=== PATIENT | male | born 1930 | race Caucasian/White ===

== ENCOUNTER 2018-06-28 02:46 | Inpatient (IN) | payer OTHER, MEDICARE ==
[~2018-06-28] VITALS: Ht 177.8 cm; Wt 76.0 kg
--- NOTE | ~2018-06-28 | HC ---
[facility] [place] [address] CONSULTATION Name: CHELY SNOW Room #: 216-P [facility] IN M.R.#: [id number] Admission: 06/28/18 Attend Phys: Kodak Morton Discharge: Date of : [birth year] Report #: [id number] THIS REPORT FOR: //name// CC: FAM unknown Kodak Morton PRIMARY CARE PHYSICIAN: ____ DIRECTOR OF RADIO SERVICES: Ino Gutierrez MD [facility]. REASON FOR CONSULTATION: CHF. HISTORY OF PRESENT ILLNESS: The patient is an 88-year-old male with a history of permanent pacemaker, atrial arrhythmias and LV dysfunction who presented with increasing lower extremity edema with weeping in his lower extremities as well as erythema. Separately, he has also been more short of breath with activity and having mild orthopnea. He denies chest pain or pressure. He has been compliant with his medications. He is without symptoms of palpitations or heart racing. PAST MEDICAL HISTORY: He has a past medical history of atrial arrhythmias, permanent pacemaker and congestive heart failure, his initial diagnosis in [id number] his EF was in the 30% range. He has persistent atrial fibrillation, hypertension, hyperlipidemia, diabetes, glaucoma and debilitation. HOME MEDICATIONS: Include Amaryl 2 mg daily, metformin 1000 mg p.o. b.i.d., Zocor 20 mg at bedtime, ramipril 5 mg p.o. b.i.d. He is on dabigatran for anticoagulation and aspirin 81 mg daily. REVIEW OF SYSTEMS: GASTROINTESTINAL: No nausea or vomiting. MUSCULOSKELETAL: Positive lower extremity edema in bilateral lower extremities. NEUROLOGIC: Denies headaches, blurred vision or falls. GENITOURINARY: No dysuria or hematuria. GASTROINTESTINAL: No bleeding. CARDIOVASCULAR: Positive dyspnea with exertion, positive orthopnea and positive PND. No chest pain. PHYSICAL EXAMINATION: VITAL SIGNS: Blood pressure is 117/59, pulse 66 paced, temperature 37.4, respirations 20 and O2 sats 97%. His weight is 70 kilos. GENERAL: This is a thin, cachectic, elderly male. He is a poor historian. He is in no apparent distress. HEENT: Unremarkable. NECK: Supple. No jugular venous distention. [facility] [address] [place] [address] CONSULTATION Name: CHELY SNOW Room #: 216-P [facility] IN .R.#: [id number] Admission: 06/28/18 Attend Phys: Kodak Morton Discharge: Date of : [birth year] Report #: [id number] CARDIOVASCULAR: Irregular. There is faint apical murmur. LUNGS: Diminished breath sounds bilaterally. ABDOMEN: Nontender. EXTREMITIES: There is 2+ erythematous edema in the lower extremities with some excoriations and scabbing of his right lower extremity. NEUROLOGIC: There are no focal deficits. 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 He is quite hard of hearing. LABORATORY DATA: Hemoglobin is 10.8, white blood cell count is 9.1 and platelet count is pending. Sodium is 141, potassium is 3.7, chloride is 107, CO2 is 25, BUN is 38 and creatinine is 1.7. Troponin I is 0.30. Electrocardiogram shows V-paced complexes. IMPRESSION: 1. Pozca-nr-pubqudz systolic congestive heart failure. His ejection fraction is in the 40% range. I was able to step into his room for my examination when his echocardiogram was being performed. This is not a whole lot different than his previous evaluations outpatient apparently. I would continue with Lasix IV. 2. Possible cellulitis. He may require IV antibiotics. I will defer treatment of this to our hospital colleagues. 3. Diabetes mellitus. He had been on metformin. We will need to monitor his renal function. 4. Mild chronic renal insufficiency. We will monitor renal function during his diuresis. 5. Atrial arrhythmias. He remains a high stroke risk without a fall history. I will probably continue with his oral novel agent upon discharge depending on what his functional status is. 6. Status post permanent pacemaker. By: [id number] Renny Blanton MD, FACC /nt
[~2018-06-28 02:46] MED LIST: ADULT LOW DOSE81 MG PO; ALTACE5 MG PO; AMARYL2 MG PO; GLUCOPHAGE500 MG PO; NIASPAN 500 MG500 M1 PO; OMEPRAZOLE20 M2 PO; PRADAXA150 MG PO; VICODIN 5-5001 EACH PO; VITAMIN D1000 UNI1 PO; ZOCOR 20 MG TAB20 M1 PO
[2018-06-28 04:40] VITALS: BP 122/58
--- NOTE | 2018-06-28 07:39 | NUR ---
PT. ARRIVED AROUND 5AM; AOX4; ST. HAS NOT HAD MUCH SLEEP; C/O PAIN OVER R. CALF AREA; ADMITION ASSESSMENT COMPLETED; ORDERS ACKNOLEDGE; ASSESSMENT CHARGED; FOLLOWING POC; PASSED ON REPORT.
[2018-06-28 07:53] VITALS: BP 117/59
[2018-06-28 08:20] LABS: HEMATOCRIT 32.4 % (42.0-52.0); HEMOGLOBIN 10.8 gm/dL (14.0-18.0); MCHC 33.4 g/dL (28.0-37.0); MCV 101.7 fL (80.0-100.0); RBC 3.19 mil/uL (4.50-6.00); RDW 14.7 % (10.5-14.5); WBC 9.1 thou/uL (4.0-11.0)
[2018-06-28 08:37] LABS: CALCIUM 9.5 mg/dL (8.5-10.1); CHOLESTEROL 114 mg/dL (<200); CREATININE 1.7 mg/dL (0.7-1.3); HDL CHOLESTEROL 61 mg/dL (>40); LDL CHOLESTEROL 44 mg/dL (<100); POTASSIUM 3.7 mmol/L (3.5-5.1); TC:HDL 1.9 Ratio (Not establshd); TRIGLYCERIDE 48 mg/dL (<150); TROPONIN-I 0.3 ng/mL (<0.06); VLDL 10 mg/dL (<40)
--- NOTE | 2018-06-28 08:40 | EKG ---
[address] [address] [place] [address] ELECTROCARDIOGRAM REPORT Name: CHELY SNOW Room #: 216-P ADM IN M.R.#: [id number] Admission: 06/28/18 Attend Phys: Kodak Morton Discharge: Date of : [birth year] Report #: [id number] THIS REPORT FOR: //name// [facility] Test Date: 2018-06-28 Test Time: 07:56:13 Pat Name: CHELY SNOW Department: Room: 216 P Gender: M [employer] Planner: ALENA : 1930 Requested By: Palmira Doran Order Number: [id number] MD: Corby Diaz Measurements Intervals [place] Rate: 83 P: [place]: QRS: -88 QRSD: 198 T: 93 QT: 449 QTc: 528 Interpretive Statements Afib/flut and V-paced complexes No further analysis attempted due to paced rhythm Compared to ECG 04/12/2010 05:16:44 Occasional intrinsic depolarizations no longer present Electronically Signed On 06-28-2018 8:40:12 SOUND ASSISTANT by Corby Diaz [email or web address] <ELECTRONICALLY SIGNED> By: Corby Diaz MD, [facility] 06/28/18 0840 [id number] Corby Diaz MD, [facility] /EPI
[2018-06-28 11:11] LABS: FOLIC ACID 12.1 ng/mL (8.6-58.9); TSH 0.687 uIU/mL (0.358-3.740)
[2018-06-28 11:42] VITALS: BP 108/53
--- NOTE | 2018-06-28 12:28 | NUR ---
met with patient who admits with CHF/weakness. 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 He reports he uses a cane in community. ALL Needs on one level in home with steps to enter. He is independent with adls. He reports with scoliosis. He cont to drive. Therapy evals in process patient likely with need for post acute care. He has dtr in [place] and son in [place] who both appear supportive.
--- NOTE | 2018-06-28 13:42 | NUR ---
WOUND CONSULT: PT. WAS SEEN TODAY BY DR. LOPEZ AND MYSELF. PT. HAS BILATERAL CELLULITIS WITH ULCERATIONS TO HIS RIGHT LOWER EXTREMITY. UNABLE TO PALPATE PEDAL PULSES IN EITHER FOOT, WEAK POPITEL PULSES WERE PALPATED. RECOMMENDATIONS: WOUND CARE TO BILATERAL LOWER EXTREMTIYS: GENTLY CLEANSE WITH WOUND CLEANSER OR NORMAL SALINE, APPLY SILVADENE/MORPHINE COMPOUND TO WOUND BED, COVER WITH XEROFORM, ABD, KERLIX, SECURE WITH TAPE, COMPLETE CARES BID. PT. AND STAFF NURSE WERE INSTRUCTED ON PLAN OF CARE.
[2018-06-28] MEDS ORDERED: LASIX 20 MG TAB20 MG PO (13:43)
[2018-06-28] MEDS ORDERED: KLOR-CON 1010 MEQ PO (13:45)
[2018-06-28] MEDS ORDERED: XALATAN2.5 ML OPHTHALMIC (13:45)
[2018-06-28] MEDS ORDERED: CARVEDILOL3.125 MG PO (13:46)
[2018-06-28] MEDS ORDERED: TOPAMAX 100 MG100 MG PO (13:46)
[2018-06-28] MEDS ORDERED: NEURONTIN 300300 M1 PO (13:46)
[2018-06-28] MEDS ORDERED: SYSTANE 0.3-0.1 EACH OPHTHALMIC (13:47)
[2018-06-28] MEDS ORDERED: TRIAMCINOLONE A80 G2 TOP (13:48)
[2018-06-28] MEDS ORDERED: ELEMENTAL CALC600 MG PO (13:49)
--- NOTE | 2018-06-28 14:11 | 2DMMODE ---
[facility] [employer] [place] [address] 2 D/M-MODE ECHOCARDIOGRAM Name: CHELY SNOW Room #: 216-P ADM IN M.R.#: [id number] Admission: 06/28/18 Attend Phys: Kodak Nassar Discharge: Date of : [birth year] Date of Service: 06/28/18 1411 Report #: [id number] THIS REPORT FOR: //name// APPROVED REPORT Study performed: 06/28/2018 08:40:18 EXAM: Comprehensive 2D, Doppler, and color-flow Echocardiogram Patient Location: Bedside Room #: 216 Status: routine BSA: 1.87 HR: 63 bpm BP: 117/59 mmHg Rhythm: Atrial Fibrillation Other Information Study Quality: Adequate Indications Pulmonary Edema, CHF. Hx: PPM, Afib, CHF 2D Dimensions RVDd: 42.98 mm IVSd: 9.57 (7-11mm) LVOT Diam: 21.12 (18-24mm) LVDd: 55.02 mm PWd: 9.14 (7-11mm) Ascending Ao: 31.36 (22-36mm) LVDs: 45.57 (25-40mm) Aortic Root: 34.55 mm Volumes Left Atrial Volume (Systole) Single Plane 4CH: 87.64 mL Single Plane 2CH: 83.51 mL LA ESV Index: 51.00 mL/m2 Aortic Valve AoV Peak Obinna.: 1.16 m/s AO Peak Gr.: 5.39 mmHg LVOT Max P.08 mmHg LVOT Max V: 0.88 m/s SAMI Vmax: 2.65 cm2 Mitral Valve MV Decel. Time: 241.43 ms MV E Max Obinna.: 0.84 m/s Pulmonary Valve [facility] [address] [place] [address] 2 D/M-MODE ECHOCARDIOGRAM Name: CHELY SNOW Room #: 216-P ADM IN [facility].#: [id number] Admission: 06/28/18 Attend Phys: Kodak Nassar Discharge: Date of : [birth year] Date of Service: 06/28/18 1411 Report #: [id number] PV Peak Obinna.: 0.81 m/s PV Peak Gr.: 2.61 mmHg Tricuspid Valve TR Peak Obinna.: 2.68 m/s RAP Estimate: 10.00 mmHg TR Peak Gr.: 28.80 mmHg Left Ventricle The left ventricle is normal size. There is global hypokinesis of the left ventricle. There is normal left ventricular wall thickness. Left ventricular systolic function is moderately decreased. LVEF is 40%. This study is not technically sufficient to allow evaluation of the LV diastolic function due to atrial fibrillation. Right Ventricle Right ventricle is mildly dilated. Right ventricle is mildly hypokinetic. Pacemaker lead is present in the right ventricle. Atria Left atrium is severely dilated. PFO noted with color doppler. Right atrium is moderately dilated. Aortic Valve The aortic valve is normal in structure. Trace aortic regurgitation. There is no aortic valvular stenosis. Mitral Valve The mitral valve is normal in structure. Mild mitral annular calcification. Mild mitral regurgitation. No evidence of mitral valve stenosis. Tricuspid Valve The tricuspid valve is normal in structure. Moderate tricuspid regurgitation. Estimated PAP is 40mmHg. Pulmonic Valve The pulmonary valve is normal in structure. Mild pulmonic regurgitation. Great Vessels The aortic root is normal in size. The ascending aorta is normal in size. IVC is dilated [facility] [address] [place] [address] 2 D/M-MODE ECHOCARDIOGRAM Name: EDYCHELY Room #: 216-P [facility] IN .R.#: [id number] Admission: 06/28/18 Attend Phys: Kodak Nassar Discharge: Date of : [birth year] Date of Service: 06/28/18 1411 Report #: [id number] and collapses <50% with inspiration. Pericardium There is no pericardial effusion. <Conclusion> LVEF is 40%. There is global hypokinesis of the left ventricle. Right ventricle is mildly hypokinetic. Right ventricle is mildly dilated. Left atrium is severely dilated. There is no aortic valvular stenosis. Trace aortic regurgitation. Mild mitral regurgitation. Moderate tricuspid regurgitation. Estimated PAP is 40mmHg. <ELECTRONICALLY SIGNED> By: Renny Blanton MD, [facility] 06/28/181410 10 10 eRnny Blanton MD, FACC /INF
--- NOTE | 2018-06-28 16:57 | NUR ---
PT IS ALERT AND ORIENTED X4. PT HAD PHYSICAL THERAPY AND OCCUPATIONAL THERAPY TODAY. PT ON ROOM AIR LUNGS ARE DIMINISHED. V-PACED ON THE UPPER LEATHER CUTTER. WOUND CARE SAW PT TODAY AND CREAM TO LOWER EXTREMITY BILATERAL. AREAS OF REDNESS AND AND ESCHAR. TRYING TREATMENT AT HOME BUT NOTHING WORKING. CONSULTS PLACED FOR WOUNDS. VOIDS PER URINAL. EATING A LOW SODIUM DIET AND TOLEATING WELL. PT HAS GENERALIZED WEAKNESS ASSIT X2 WITH BED OR CHAIR ALARM ON DUE TO FORGETFULL AT TIMES. WILL CONTINUE TO MONITOR AND ASSESS PER NURSING
[2018-06-28 20:19] VITALS: BP 110/65
[2018-06-28 22:10] LABS: GLYCOHEMOGLOBIN (HGB A1C) 6.1 % (4.8-5.6)
[2018-06-29 03:25] LABS: CALCIUM 8.8 mg/dL (8.5-10.1); CREATININE 1.6 mg/dL (0.7-1.3); POTASSIUM 3.7 mmol/L (3.5-5.1)
[2018-06-29 04:12] LABS: ABSOLUTE NEUTROPHILS 6.4 thou/uL (1.4-8.2); BASOPHILS 0.3 % (0.0-2.0); EOSINOPHILS 4.8 % (0.0-3.0); HEMATOCRIT 31.4 % (42.0-52.0); HEMOGLOBIN 10.6 gm/dL (14.0-18.0); LYMPHOCYTES 8.5 % (24.0-44.0); MCH 34.3 pg (26.0-34.0); MCHC 33.9 g/dL (28.0-37.0); MONOCYTES 7.7 % (1.0-8.0); PLATELET COUNT 98 thou/uL (150-400); POLYS 78.7 % (36.0-66.0); RBC 3.11 mil/uL (4.50-6.00); RDW 14.7 % (10.5-14.5); WBC 8.2 thou/uL (4.0-11.0)
[2018-06-29 04:43] VITALS: BP 125/61
--- NOTE | 2018-06-29 05:43 | NUR ---
PT. AOX4 AT SHIFT CHANGE; RELATIVES PRESENT EARLY ON THE NIGHT; PT. GOT UPSET ABOUT HS MEDICATION BECAUSE MEDICATIONS ARE NOT THE SAMEONES TAKEN AT HOME; REFUSED LOVENOX; ST. "I TAKE PRADAXA AT HOME; " I HAVE NOT TAKEN THE MORNING DOSE AND NOW I DO NOT HAVE THE NIGHT DOSE"; C/O ABOUT INSULIN; "ST I DO NOT TAKE INSULIN AT HOME"; UPSET BECAUSE HIS REGULAR CARDIOLOGY HAS NOT VISITED DURING THE DAY HE REQUESTED; ST. 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 PEREZ); EXPLAINED ABOUT THE REASONS BEHIND OF CHANGING BLOOD THINNERS WHILE IN THE HOSPITAL WELL METFORMIN BY INSULIN; AND DAUGHTER ST. UNDERSTANDING; PT. REFUSED LOVENOX; EXPLAINED ABOUT DR. PEREZ PRIVILEGES OVER THE HOSPITAL; ST. UNDERSTANDING; TOOK OTHER HS MEDICATIONS; COOPERATIVE AND CALM FOR THE REST OF THE NIGHT; ABLE TO REST DURING THE NIGHT; BLADDER SCANNED IN THE MORNING; ABLE TO VOID; ASSESSMENT CHARGED; FOLLOWING POC; WILL PASS ON REPORT.
[2018-06-29 08:20] VITALS: BP 130/80
[2018-06-29 12:00] VITALS: BP 127/54
--- NOTE | 2018-06-29 12:24 | NUR ---
Case discussed with the care team. Therapy recommending rehab at dc. 5N eval per the attending. 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 Continue IV atb, wound care and therapy. Awaiting rehab medicine recommendations.
[2018-06-29 16:00] VITALS: BP 120/49
--- NOTE | 2018-06-29 18:45 | NUR ---
ASSUMED CARE OF PATIENT AT 0700. PT/VITALS STABLE. COMPLAINS OF INTERMITTENT LOWER EXTREMITY PAIN. PATIENT IS A STAND BY ASSIST WITH A GAIT BELT AND GREW MORE STEADY WITH EACH TIME ON HIS FEET TO THE BATHROOM. HE WORKED WITH PT/OT TODAY. PROGRESSING WELL WITH POC. DRESSING CHANGE ON BILATERAL LE PERFORMED AND BARE LEGS SHOWN TO THE PATIENT'S DAUGHTER. PATIENT'S DAUGHTER REQUESTED GLUCERNA BE ADDED TO EACH MEAL THE PATIENT HAS NOT HAD MUCH OF AN APPETITE. PATIENT'S DAUGHTER AND AT THE BEDSIDE TODAY. PLAN IS TO CONTINUE TO TREAT PATIENT WITH ABX. CONTINUE TO MONITOR AND FOLLOW WITH POC.
[2018-06-29 19:28] VITALS: BP 108/56
--- NOTE | 2018-06-30 04:41 | NUR ---
Assumed pt care at 1900 with no sign of distress noted in pt. Pt is alert and oriented with no sign of distress noted in pt. Family at bedside. Pt is staboe and he is laying in bed. Scheduled medications administered to pt. Pt's blood sugar ids checked. Wound dressing change done. Assessment documented. No further needs at this time. Pt is stable. Denies any further needs at this time.
[2018-06-30 04:52] VITALS: BP 105/53
[2018-06-30 05:19] LABS: CALCIUM 8.6 mg/dL (8.5-10.1); CREATININE 1.7 mg/dL (0.7-1.3); MAGNESIUM 1.8 mg/dL (1.8-2.4); POTASSIUM 3.5 mmol/L (3.5-5.1)
[2018-06-30 08:12] VITALS: BP 105/57
[2018-06-30] MEDS ORDERED: ASPIR 8181 MG PO (08:59)
[2018-06-30] MEDS ORDERED: VAN500AD IVPB (09:03)
[2018-06-30 09:14] VITALS: BP 105/57
--- NOTE | 2018-06-30 10:02 | NUR ---
Pt and family agreeable to 5N acute rehab. All parties anticipating dc to 5N today.
--- NOTE | 2018-06-30 11:08 | NUR ---
ASSESSMENT DOCUMENTED. PT ALERT AND ORIENTED WITH FORGETFULNESS. VSS. WOUND CARE COMPLETED. SEEN BY DR. POWER. ORDERS GIVEN TO DISCHARGE PT TO REHAB. PATIENT AND FAMILY NOTIFIED. REPORT CALLED IN TO [facility].
--- NOTE | 2018-07-03 08:46 | HC ---
[facility] [place] [address] CONSULTATION Name: EDYCHELY Niko Room #: 216-P [facility] IN .R.#: [id number] Admission: 06/28/18 Attend Phys: Kodak Morton Discharge: 06/30/18 Date of : [birth year] Report #: [id number] THIS REPORT FOR: //name// CC: FAM unknown Kodak Morton DATE OF SERVICE: 06/28/2018 PERSONAL PHYSICIAN: Non-staff. CHIEF COMPLAINT: Lower extremity cellulitis with open ulcerations. HISTORY OF PRESENT ILLNESS: This is an 88-year-old white male who lives at home with his , but for the past several days has been having increasing lower extremity edema and was admitted for fluid overload as well as bilateral lower extremity cellulitis. The patient was noted to have open ulcerations on both lower extremities, right much greater than left. The patient also has a complaint of weakness and fatigue over the past several weeks. The patient states his lower extremities have been more swollen recently, which developed into fluid filled blisters, which then developed into open ulcerations. The patient states that the redness and warmth started approximately 2-3 days ago, which prompted him to call his primary care physician who admitted him to the hospital. PAST MEDICAL HISTORY: Significant for diabetes, congestive heart failure, atrial fibrillation, hypertension and hyperlipidemia. CURRENT MEDICATIONS: Multiple, I reviewed the patient's medication list. DRUG ALLERGIES: SULFA. SOCIAL HISTORY: The patient denies any history of smoking or alcohol use. FAMILY HISTORY: Not pertinent to current condition. REVIEW OF SYSTEMS: CONSTITUTIONAL: The patient denies fevers or chills. NEUROLOGIC: The patient with overall generalized weakness and fatigue for the past several days, but no isolated weakness in arms or legs. EYES: No complaints. ENT: No complaints. CARDIAC: The patient complains of lower extremity edema with palpitations consistent with atrial fibrillation, but no chest pain. RESPIRATORY: The patient denies actual shortness of breath, cough or wheezes. GASTROINTESTINAL: The patient denies nausea, vomiting or abdominal pain. GENITOURINARY: The patient denies urgency or frequency. [facility] [address] [place] [address] CONSULTATION Name: CHELY SNOW Room #: 216-P [facility] IN M.R.#: [id number] Admission: 06/28/18 Attend Phys: Kodak Reese Morton Discharge: 06/30/18 Date of : [birth year] Report #: [id number] MUSCULOSKELETAL: No complaints. SKIN: There are open wounds noted on the bilateral lower extremities, right much greater than left with increased erythema and warmth. PHYSICAL EXAMINATION: VITAL SIGNS: Temperature 39, pulse 65, respirations 20 and BP 125/61. GENERAL: This is an alert and oriented x 2, person and place, but not time, elderly, chronically ill-appearing white male who is in no obvious distress. HEENT: Normocephalic and atraumatic. Mucous membranes are dry. Pupils are round. Sclerae are white. NECK: Supple. There is no JVD. LUNGS: Slightly diminished breath sounds heard throughout. HEART: Irregularly irregular. ABDOMEN: Soft, otherwise nontender. EXTREMITIES: The patient has 1 to 2+ edema in the bilateral lower extremities. Distal pulses are faint. There is increased warmth and erythema of bilateral lower extremities. On the left lower extremity, there is more consistent dry skin, hyperkeratotic skin. On the right lower extremity, there are multiple superficial ulcerations limited to breakdown of the skin. Bilateral heels are intact, but slightly boggy. NEUROLOGIC: Cranial nerves 2-12 are grossly intact. Motor and sensory grossly intact. LABORATORY VALUES: White count 9.1 and hemoglobin 10.8. BUN 41 and creatinine 1.6. WOUND CARE COURSE: At this point in time, given the weak pulses distally, I will order arterial Dopplers to evaluate for underlying arterial disease. We will hold off on aggressive compression pending the arterial Dopplers. We will start the patient on morphine and Silvadene cream to bilateral lower extremities, cover this with Xeroform, ABD, Kerlix and secure with tape while this is placed twice daily I have talked to the patient about maximizing his protein supplementation. We will check an albumin on this patient as well. We will keep his legs elevated as much as possible. We will continue all other current medications. IMPRESSION: 1. Bilateral lower extremity cellulitis, right greater than left. 2. Chronic ulcerations, bilateral lower extremities, limited to breakdown of skin. 3. Diabetes mellitus. 4. Congestive heart failure. 5. Atrial fibrillation. 6. Generalized debility. [address] [address] CONSULTATION Name: CHELY SNOW Room #: 216-P [facility] IN M.R.#: [id number] Admission: 06/28/18 Attend Phys: Kodak Morton Discharge: 06/30/18 Date of : [birth year]19/[birth year] Report #: [id number] PLAN: Described in length as above. We will utilize physical and occupational therapy for strengthening and we will continue to follow the patient. <ELECTRONICALLY SIGNED> By: Robe Parry MD 07/03/18 [phone] 1235 Robe Parry MD /nt
== END 2018-06-30 11:31 | DRG 602 ==
LOC: 2N 02:46 → ENTRNSPT 06-30 11:25 → 2N 06-30 11:31
PROVIDERS: Internal Medicine Cardiovascular Disease; Nurse Practitioner; Nurse Practitioner Family; ADMIT Hospitalist
DX: L03.116 Cellulitis of left lower limb (principal); I50.23 Acute on chronic systolic (congestive) heart failure; I48.1 Persistent atrial fibrillation; N18.4 Chronic kidney disease, stage 4 (severe); L97.821 Non-pressure chronic ulcer of other part of left lower leg limited to breakdown of skin; L97.811 Non-pressure chronic ulcer of other part of right lower leg limited to breakdown of skin; I13.0 Hypertensive heart and chronic kidney disease with heart failure and stage 1 through stage 4 chronic kidney disease, or unspecified chronic kidney disease; L03.115 Cellulitis of right lower limb; E78.5 Hyperlipidemia, unspecified; H40.9 Unspecified glaucoma; I49.8 Other specified cardiac arrhythmias; D69.6 Thrombocytopenia, unspecified; E11.22 Type 2 diabetes mellitus with diabetic chronic kidney disease; G25.81 Restless legs syndrome; G25.0 Essential tremor; K21.9 Gastro-esophageal reflux disease without esophagitis; M62.84 Sarcopenia; Z95.0 Presence of cardiac pacemaker; Z88.2 Allergy status to sulfonamides; Z79.899 Other long term (current) drug therapy
CPT/HCPCS: 10081

== ENCOUNTER 2018-06-30 10:34 | Inpatient (IN) | payer OTHER, MEDICARE ==
[~2018-06-30] VITALS: Ht 185.4 cm; Wt 73.5 kg
[~2018-06-30 10:34] MED LIST changes: +ASPIR 8181 MG PO; +CARVEDILOL3.125 MG PO; +ELEMENTAL CALC600 MG PO; +KLOR-CON 1010 MEQ PO; +LASIX 20 MG TAB20 MG PO; +NEURONTIN 300300 M1 PO; +SYSTANE 0.3-0.1 EACH OPHTHALMIC; +TOPAMAX 100 MG100 MG PO; +TRIAMCINOLONE A80 G2 TOP; +VAN500AD IVPB; +XALATAN2.5 ML OPHTHALMIC
--- NOTE | 2018-06-30 11:53 | NUR ---
pt new to [facility] today, bedside nurse in room getting pt tucked in to room. he up in recliner with his and daughter at bedside. pt preferrs going by lester johnson to ronna, team meeting, dcp, and transition of care. pt is a & o x 3, pleasant with some forgetfulness. [facility] " sent hearing aids back to have batteries changed."/alex. pt reported " live with in house, [address] in [place]. 64 years we have been , we help each other but she takes care of things. still drive, manage own medication. primary dr is at [facility] dr sánchez villegas. have walking stick us sometimes. " alex. pt passed on information rt medciation and bs. cm passed on to bedside nurse to cont following up with. will cont following as needed for dc needs.
--- NOTE | 2018-06-30 16:09 | NUR ---
PT ARRIVED IN THE UNIT AT 1130. VITALS STABLE. PT DENIES PAIN. C/O SKIN DRYNESS, LOTION APPLIED TO SHOULDERS AND BACK. PT ALERT AND ORIENTED*4, CONFUSED AT TIMES, HARD OF HEARING. PT HAS UMBERTO LOWER EXTREMITIES CELLULITIS AND WOUNDS, DRESSING CHANGED. PULSES ARE 2+/1+. LS CRACKLES, NO COUGH, SATS >95% ON RA. PT LYING IN BED AFTER THERAPY. SPOUSE AND DAUGHTER AT BEDSIDE. Q1H VISUAL CHECKS. CALL LIGHT WITHIN REACH. FALL PRECAUTIONS IN PLACE
[2018-06-30 20:57] VITALS: BP 110/43
--- NOTE | 2018-07-01 05:27 | NUR ---
UP IN CHAIR MOST OF EVENING, WALKED TO BATHROOM FOR VOID AND BOWEL MOVEMENT. LEGS DRESSED WITH SILADENE/MS, XEROFORM, ABD AND KERLIX. FAMILY STAYING OVERNIGHT AND SLEEPING WELL. STATES NO LONGER USING TRIAMCINOLONE TO LEGS AND WE ARE USING SILVADENE IN PLACE OF IT. EXPLAINED THAT VANCOMYCIN IV WILL BE GIVEN EVERY 12 HOURS
[2018-07-01 05:45] LABS: HEMOGLOBIN 9.3 gm/dL (14.0-18.0); MCH 33.1 pg (26.0-34.0); MCHC 33.1 g/dL (28.0-37.0); MCV 99.9 fL (80.0-100.0); RBC 2.81 mil/uL (4.50-6.00); RDW 14.2 % (10.5-14.5); WBC 5.1 thou/uL (4.0-11.0)
[2018-07-01 05:59] LABS: CALCIUM 8.8 mg/dL (8.5-10.1); CREATININE 1.5 mg/dL (0.7-1.3); POTASSIUM 3.7 mmol/L (3.5-5.1)
[2018-07-01 08:46] VITALS: BP 114/48
--- NOTE | 2018-07-01 17:08 | NUR ---
ASSUMED CARES AT 0700. PT AWAKE, ALERT AND ORIENTED *4. HARD OF HEARING. TIRED AND SLEEPY AFTER THERAPY THIS AFTERNOON, SLEPT ON HIS RECLINER WITH FEET ELEVATED. WOUNDS IN BLE CLEANED AND DRESSING CHANGED, NON-PITTING EDEMA NOTED IN BLE. DENIES PAIN. ALL VITALS REMAINED STABLE. THIS NURSE WENT THROUGH EACH MEDICATION WITH PT, DAUGHTER AND SPOUSE BEFORE ADMINISTERING BUT PT BELIEVES THAT THOSE MEDICATIONS WERE WRONG. HOME MEDICATIONS WERE COMPARED TO THE MEDS IN THE EMAR AND EVERYTHING WAS ZOIE. DAUGHTER AND SPOUSE AGREED WITH NURSING THAT ALL THE MEDICATIONS ADMINISTERED WERE CORRECT. PT UP WITH 1 PERSON MIN ASSIST, AMBULATED THE HALLWAY WITH THERAPY AND TOLERATED WELL. Q1H VISUAL CHECKS. CALL LIGHT WITHIN REACH. FALL PRECAUTIONS IN PLACE.
[2018-07-01 20:15] VITALS: BP 116/51
--- NOTE | 2018-07-02 04:15 | NUR ---
assumed care at approx 1900 evening 07/01. pt sitting up in recliner at change of shift visiting with several family members in his room. family left approx 2200 and pt dozing off in chair. pt assisted up to bathroom and into bed. pt took hs meds with water tolerating well. pt appears to be sleeping soundly with hourly rounding checks. spouse stays the night in room sleeping on cot. bed alarm on and call light in reach. will continue to monitor.
[2018-07-02 09:38] VITALS: BP 96/50
--- NOTE | 2018-07-02 16:37 | NUR ---
ASSUMED CARES AT 0700. PT AWAKE, ALERT AND ORIENTED *4. DENIES PAIN. VITALS REMAINED STABLE. WOUNDS IN BLE CLEANED AND DRESSING CHANGED, SILVER SULFADINE APPLIED. PT CONTINUES TO HAVE MILD BLE EDEMA, DRY SKIN IN BLE, TRIAMCINOLONE CREAM APPLIED ORDERED. PT AMBULATED THE HALLWAY WITH NURSING STAFF LONG DISTANCE AND TOLERATED WELL. SPOUSE AT BEDSIDE. Q1H VISUAL CHECKS. CALL LIGHT WITHIN REACH. FALL PRECAUTIONS IN PLACE
[2018-07-02 19:26] VITALS: BP 93/41
[2018-07-02 22:00] VITALS: BP 102/56
--- NOTE | 2018-07-03 02:00 | NUR ---
PT ASSESSMENT COMPLETED AND VSS. MEDS GIVEN ORDERED AND WELL TOLERATED. FALL PRECAUTIONS IN PLACE. PT DENIES PAIN/N/SOA. SUPPORTIVE FAMILY AT BEDSIDE. UP TO THE BATHROOM WITH WALKER/GAIT/ASST. VOIDING WELL. UMBERTO LEG DRESSINGS COMPLETED. SLEEPING WELL. WILL CONTINUE TO MONITOR FREQUENTLY.
[2018-07-03 04:47] VITALS: BP 115/62
[2018-07-03 07:54] VITALS: BP 104/61
[2018-07-03 19:45] VITALS: BP 90/44
--- NOTE | 2018-07-04 05:08 | NUR ---
ASSUMED CARE OF PT AT 1915. AND DAUGHTER AT BEDSIDE DURING EVENING, IN ROOM ALL SHIFT. DRSGS ON RIGHT LEG CHANGED ORDERED. AMBULATES TO BATHROOM WITH ASSIST OF ONE USING STICK AND GAIT BELT. PO MEDS TAKEN WITHOUT DIFFICULTY, ONE AT A TIME WITH WATER. HAS APPEARED TO BE SLEEPING WHEN CHECKED ON HOURLY ROUNDS. FALL PRECAUTIONS IN PLACE.
--- NOTE | 2018-07-04 06:44 | HC ---
[facility] [address] [place] [address] CONSULTATION Name: CHELY SNOW Room #: 514-P [facility] IN M.R.#: [id number] Admission: 06/30/18 Attend Phys: Ino Dinh MD Discharge: Date of : 04/19/30 Report #: [id number] THIS REPORT FOR: //name// CC: Ino Dinh [facility] unknown DATE OF SERVICE: 07/01/2018 ATTENDING PHYSICIAN: Ino Dinh MD HEAD SCORER: Jagdeep Schaeffer, PhD CLINICAL PRESENTATION: The patient is an 88-year-old male admitted to the [facility] Rehabilitation Unit for comprehensive inpatient rehabilitation program to improve functional mobility and activities of daily living and self-care and mental status secondary to deficits from an acute exacerbation of congestive heart failure with an ejection fraction of 40%. His diagnoses on admission included bilateral lower extremity cellulitis with wounds, medical complexity with generalized debility, gait instability with recurrent falls, atrial fibrillation on chronic anticoagulation, type 2 diabetes, history of permanent pacemaker placement, premorbid essential tremor and peripheral neuropathy. A complete description of his medical condition and history along with medications can be found in his medical records. Neuropsychological consultation was requested to provide assistance in the assessment of cognitive and emotional status and to provide recommendations and services. Prior to this most recent admission, he was living with his in their home. He has 2 children. A son is a police aide whose home is next to them. Patients is reported to provide assistance with most of his instrumental activities of daily living. However, the patient does continue to drive. He has had 2 prior falls. He reports having obtained a master's degree prior to halfway. TECHNIQUES UTILIZED: Clinical interview, review of medical records, staff consultation and behavioral observation, mini-mental status exam 2 standard version, NAB digits forward, digits backward, and category fluency assessment. The patient has a severe tremor and so tests requiring requiring upper extremity dexterity were not administered. EXAMINATION FINDINGS: The patient was alert and cooperative with the assessment. He accurately described events surrounding his admission. There is no evidence of aphasia. His thoughts are logical and goal oriented. There is no evidence of a thought disorder. He does not report auditory or visual hallucinations, depression or suicidal ideation. He reports his symptoms to [facility] [address] [place] [address] CONSULTATION Name: CHELY SNOW Room #: 514-P [facility] IN .R.#: [id number] Admission: 06/30/18 Attend Phys: Ino Dinh MD Discharge: Date of : 04/19/30 Report #: [id number] include difficulty with sleep, memory, appetite and anxiety. His primary concern is his ability to return home. Encouragement to maintain attention and alertness throughout the assessment was necessary. His performance on the MMSE 2 brief version is within normal limits with a raw score of 15 of 16. He was 3 of 3 for initial registration, 5 of 5 for orientation to time, 4 of [address] and 3 of 3 for immediate recall of 3 items after a brief time delay and distraction. Mild impairment was noted on the extended standard version of the MMSE 2 with a raw score of 24, which is a T score of 36 and percentile rank of 8. The patient was 2 of 5 for serial 7s, 2 of 2 for naming, 1 of 1 for repetition, 3 of 3 for auditory comprehension. He could read and follow single command. Because of the severe tremor, he was not able to copy a design or write a sentence. Digits forward was at the 1st percentile with a T score of 27. Digits backward was at the 5th percentile with a T score of 34. Impairment with the digits forward, digits backward suggests deficits in attention and sustained concentration. Deficits in attention and concentration can affect overall executive functioning. Category fluency was in the low average range at a 21st percentile. The patient is alert and oriented; however, deficits in attention and sustained concentration suggest executive dysfunction. DIAGNOSTIC IMPRESSION: Major neurocognitive disorder (dementia), without behavior disorder, mild severity. Unspecified Anxiety Disorder RECOMMENDATIONS: The patient should discontinue driving. Followup with neuropsych assessment can be of benefit to clarify the severity of cognitive deficits. At this time, his level of arousal, attention and sustained concentration is very poor and even when alert and oriented, the variability in attention and concentration places him at a great safety risk for driving. Continued assistance with instrumental activities of daily living as indicated. Thank you very much for allowing me to provide the consultation on this patient. <ELECTRONICALLY SIGNED> By: Jagdeep Schaeffer, PhD 07/04/18 [id number] Jagdeep Schaeffer, PhD /nt
[2018-07-04 07:30] VITALS: BP 103/54
--- NOTE | 2018-07-04 08:08 | NUR ---
ASSUMED CARE AT 0700. PATIENT IS ALERT AND ORIENTED X4. PATIENT RAMIREZ'S. FINANCIAL BROKERS ARE EQUAL. LUNGS ARE CLEAR. PATIENT HAS PACEMAKER. ABD IS SOFT WITH BSX4. UP WITH ASSIST OF 1 STAFF, WALKING STICK AND GAIT BELT. PATIENT HAS CELLULITIS WOUNDS TO L.E. PATIENT IS ON 1500 CC F.R. PATIENT HAS TREMORS AND SHUFFLING GAIT. PATIENT HAS LEFT S.L. IN HIS LEFT A.C. SITE IS WITHOUT REDNESS OR SWELLLNG. FALL AND SAFETY PROTOCOLS IN PLACE. DENIES ANY PAIN AT THIS TIME. CONTINUES TO PROGRESS SLOWLY TOWARDS D/C GOALS. PATIENT FAMILY AT BEDSIDE. WILL CONTINUE TO MONITER.
--- NOTE | 2018-07-04 08:28 | NUR ---
WOUND CONSULT: PT. WAS SEEN ON 07/03/[address] PAUL AND MYSELF. PT. IS WELL KNOWN TO THE WOUND CARE TEAM WE WERE FOLLOWING THIS PT. ON THE ACUTE SIDE OF THE HOSPITAL PRIOR TO ADMIT TO REHAB. PT. WOUNDS HAVE GREATLY IMPROVED SINCE I FIRST SAW THIS PT. PT. WAS PRESENT FOR THIS ASSESSMENT AND STATED THAT SHE IS VERY HAPPY WITH THE PROGRESSION HE IS MAKING. RECOMMENDATIONS: WOUND CARE TO RIGHT LOWER EXTREMTIY: GENTLY CLEANSE WITH WOUND CLEANSER OR NORMAL SALINE, APPLY SILVADENE/MORPHINE COMPOUND TO WOUND BED, COVER WITH XEROFORM, ABD, KERLIX, SECURE WITH TAPE, COMPLETE CARES BID. PT. AND STAFF NURSE WERE INSTRUCTED ON PLAN OF CARE.
--- NOTE | 2018-07-04 13:13 | NUR ---
team meeting recommendations : dc 12th, family education on wound care at home, hh ( nursing, pt, ot, st). recommends no driving and check with primary care.
[2018-07-04 17:00] VITALS: BP 107/48
[2018-07-04 19:30] VITALS: BP 128/62
--- NOTE | 2018-07-05 03:36 | NUR ---
ASSUMED CARE OF PT AT 1915. PT ALERT AND ORIENTED X4. ASSESSMENT COMPLETED. UP IN CHAIR THROUGH THE EVENING. RLE DRSGS CHANGED ORDERED. AMBULATES TO BATHROOM WITH ASSIST OF ONE USING GAIT BELT. DENIES PAIN, NAUSEA OR DYPSNEA. AT BEDSIDE THROUGH THE NIGHT. HAS APPEARED TO BE SLEEPING WHEN CHECKED ON HOURLY ROUNDS. FALL PRECAUTIONS IN PLACE.
[2018-07-05 07:52] VITALS: BP 98/51
--- NOTE | 2018-07-05 12:19 | NUR ---
cm visited with pt and rt hh list, referral to be sent out to [facility] per family choice.
--- NOTE | 2018-07-05 13:04 | NUR ---
ASSUMED CARE AT APPROX 0715. PATIENT A/O X4. USES HUMOR APPROPRIATELY. RECALLS INFORMATION WITH EXTRA TIME. AT BEDSIDE. BP LOW, LISINOPRIL HELD PER PARAMETERS. PAITENT UP X1 ASSIST GB AND WALKER OR WALKING STICK, USED WALKER THIS AM. C/O PAIN IN BACK, MEDICATED PRIOR TO THERAPY. PARTICIPATING IN THERAPY. UP IN CHAIR BETWEEN SESSIONS PER PATIENT REQUEST. LEGS ELEVATED WHEN AT REST. DRESSING TO RIGHT LOWER EXTREMITY C/D/I. PER COMMERCIAL CRABBER, PATIENT MAY HAVE DRESSINGS REMOVE, SHOWER, AND HAVE DRESSINGS REPLACED BY RN- THIS WAS PASSED ON TO ROB DOBBINS. WOUND CARE PHYSICIAN NOTIFIED OF D/C DATE, WOUND CARE TEAM WILL DISCUSS DISCHARGE WOUND CARE ORDERS WITH FAMILY WHEN FINALIZED. FALL PRECAUTIONS IN PLACE. WILL CONTINUE TO MONITOR.
--- NOTE | 2018-07-05 15:14 | NUR ---
Patient participated in community reintegration on 07/05/18 with Physical Therapy. Refer to documentation by PT.
[2018-07-05 20:42] VITALS: BP 103/55
--- NOTE | 2018-07-06 02:16 | NUR ---
ASSUMED CARE OF PT AT 1915. PT ALERT AND ORIENTED X4, CALM AND COOPERATIVE. UP IN CHAIR THROUGH THE EVENING HOURS. DRSGS ON RLE CHANGED ORDERED. C/O SOME BACK PAIN, DECLINES PAIN MEDICATION. AMBULATES WITH ASSIST OF ONE USING GAIT BELT. CHECKED ON HOURLY ROUNDS. BED ALARM ON.
[2018-07-06 04:25] LABS: ABSOLUTE NEUTROPHILS 3.5 thou/uL (1.4-8.2); BASOPHILS 0.5 % (0.0-2.0); EOSINOPHILS 6.9 % (0.0-3.0); HEMATOCRIT 26.3 % (42.0-52.0); HEMOGLOBIN 9.3 gm/dL (14.0-18.0); LYMPHOCYTES 16.9 % (24.0-44.0); MCH 34.2 pg (26.0-34.0); MCHC 35.4 g/dL (28.0-37.0); MCV 96.8 fL (80.0-100.0); MONOCYTES 11.1 % (1.0-8.0); PLATELET COUNT 162 thou/uL (150-400); POLYS 64.6 % (36.0-66.0); RBC 2.72 mil/uL (4.50-6.00); RDW 13.7 % (10.5-14.5); WBC 5.5 thou/uL (4.0-11.0)
[2018-07-06 04:30] LABS: CALCIUM 9.1 mg/dL (8.5-10.1); CREATININE 1.5 mg/dL (0.7-1.3); MAGNESIUM 1.8 mg/dL (1.8-2.4); POTASSIUM 4.2 mmol/L (3.5-5.1)
--- NOTE | 2018-07-06 09:48 | NUR ---
FAXED REFERRAL TO [facility] WITH JOSE DAVID IN ADM, TO REVIEW AND ANTICIPATE DC 07/11. DCP TO FOLLOW.
[2018-07-06 20:16] VITALS: BP 108/52
--- NOTE | 2018-07-06 20:35 | NUR ---
ASSUMED PT CARE AT 0700H. PT A&O X4. PT HAS NO S/S OF DISTRESS. PT AMBULATES WITH A STICK. PT PARTICIPATES THERAPY. PT HAD SHOWER. PT R LOWER EXTREMITY DRSNG C/D/I. PT STATED R PROXIMAL THIGH SKIN ISSUE. NOTIFIED HEALTH CARE PROVIDER AND NEW ORDERS RECEIVED AND ACKNOWLEDGED. PT TOLERATING MEALS. PT STATED NO SKIM MILK AND CEREAL. PT PREFERS SOY MILK AND OAT MEAL. PT AT BEDSIDE. PT CALLS APPROPRIATELY AND PT CONT TO BE MONITORED FOR SAFETY.
--- NOTE | 2018-07-07 06:23 | NUR ---
UP WITH STANDBY ASSIST USING HIS WALKING STICK. IV ANTIBIOTIC TO LAC IV SITE. DRESSING CHANGE TO LEFT LOWER EXTREMITY AT HS. STAYS OVERNIGHT. PLEASANT
[2018-07-07 08:15] VITALS: BP 124/64
--- NOTE | 2018-07-07 12:44 | H ---
[facility] [place] [address] HISTORY AND PHYSICAL Name: CHELY SNOW Room #: 514-P ADM IN M.R.#: [id number] Admission: 06/30/18 Attend Phys: Ino Dinh MD Discharge: Date of : 04/19/30 Report #: [id number] THIS REPORT FOR: //name// CC: Ino Dinh [facility] unknown DATE OF SERVICE: 06/30/2018 HISTORY OF PRESENT ILLNESS: This is an 88-year-old gentleman who was transferred from an outside facility with increasing shortness of breath, weakness and wounds to the lower extremities. He was admitted and evaluated by Cardiology. He was found to have acute exacerbation of his CHF. Echocardiogram showed an ejection fraction of 40%. He was seen by wound care for bilateral lower extremity wounds with cellulitis. He has been treated with vancomycin IV. He did have arterial Dopplers that showed no significant stenosis and no further intervention was required. He had a slightly elevated troponin that was felt secondary to his congestive heart failure. He had a mild increase in his creatinine. He has had a decline in functional mobility, for which we are admitting him to acute inpatient rehabilitation for physical and occupational therapies. Today, the patient does have shortness of air with activity. He denies chest pain or cough. He denies headache or dizziness. He denies nausea, vomiting, abdominal pain or constipation. He denies dysuria. His legs are very tender even to a sheet on his toes. His calves have wounds that he reports are also very tender. He has some neuropathy changes in his lower extremities and hands. He has premorbid tremors that he reports are about his baseline. PAST MEDICAL HISTORY: CHF, atrial fibrillation, chronic hypertension, hyperlipidemia, type 2 diabetes, glaucoma, history of appendectomy, history of pacemaker placement. HABITS: The patient is a never tobacco smoker. No alcohol use, no illicit drug use. CODE STATUS: Full code. SOCIAL HISTORY: The patient lives at home with his . He has 3 stairs to enter the home and then all living on one level. He does have a son that is a prec[employer] police sergeant and lives next door. He also has daughters nearby. Premorbidly, he was independent with ADLs. He utilized a walking stick when needed, especially for longer distances. provides most of the IADLs. They both drive. His does have scoliosis. She had trouble even ambulating a few feet around the room. He had 2 almost falls prior to admission where he became weak and was assisted down to the ground. However, with those falls, he was unable to get himself back up without family assistance. ALLERGIES: SULFA. [facility] [address] [place] [address] HISTORY AND PHYSICAL Name: EDYCHELY Niko Room #: 514-P [facility] IN M.R.#: [id number] Admission: 06/30/18 Attend Phys: Ino Dinh MD Discharge: Date of : 04/19/30 Report #: [id number] CURRENT MEDICATIONS: Lasix 40 mg by mouth to start tomorrow on 07/01/2018; magnesium p.r.n. indigestion, bisacodyl suppository p.r.n. constipation, senna tablet oral p.r.n. constipation, glimepiride 1 mg with breakfast, niacin 500 mg at bedtime, atorvastatin 40 mg at bedtime, carvedilol 3.125 mg twice a day, gabapentin 300 mg 3 times a day, Pradaxa 150 mg twice a day, potassium 10 mEq daily, Topamax 200 mg twice a day, Protonix 20 mg daily, latanoprost eyedrops at bedtime, Colace 100 mg twice a day, vancomycin 500 mg IV piggyback twice a day, morphine Silvadene compound twice a day to bilateral lower extremity cellulitis, aspirin 81 mg daily, nitroglycerin sublingual tablets p.r.n., insulin NovoLog sliding scale a.c. and at bedtime subcutaneous, Tylenol 650 q.4 hours p.r.n., Zofran 4 mg q. 4 hours p.r.n. REVIEW OF SYSTEMS: Remainder of his 14-point review of systems is negative except as listed in HPI. PHYSICAL EXAMINATION: VITAL SIGNS: Blood pressure 105/57, respirations 18, pulse is 61, temperature 98.7, O2 sat 96% on room air. GENERAL: He is awake, alert. He is oriented x 3. He is in no acute distress. HEENT: Head is normocephalic. Eyes: EOMs are intact. NECK: No lymphadenopathy. CARDIAC: He has a murmur, S1, S2. He has a pacemaker intact. He has been paced on his rhythm. LUNGS: Diminished. Few scattered rhonchi. He is on room air. ABDOMEN: Bowel sounds are positive. He is soft, nontender, nondistended. GENITOURINARY: No CVA tenderness. EXTREMITIES: Functional range of motion of his bilateral upper extremities. He does have bilateral essential tremors. He has equal flour blender helper, but are decreased bilaterally. Upper extremity strength is grossly 3+ to 4-/5. He has decreased range of motion in the left lower extremity. He was unable to lift the left leg antigravity off the bed. Right lower extremity appears functional range of motion. He was able to lift antigravity. Bilateral knee to the ankles are wrapped with Kerlix that is clean, dry and intact. I did not remove it. He does have onychomycosis to toenails bilaterally. They were trimmed by Podiatry yesterday. Decreased sensation in his feet; however, he is also very hypersensitive. He is transferring with min to mod assist depending on the surface level. He is ambulating 300 feet with min assist with no assistive device. Grooming is min assist. He does require rest breaks with standing. NEUROLOGIC: Cranial nerves 2 through 12 grossly intact. As noted above, he does have the essential tremor. PSYCHIATRIC: He is calm and cooperative, little agitated with being in the hospital. LABORATORY DATA: From 06/30/2018, sodium 143, potassium 3.5, BUN 39, creatinine 1.7, magnesium 1.8. Folic acid 11. Vitamin B12 of [address]. [address] [address] HISTORY AND PHYSICAL Name: EDYCHELY Room #: 514-P [facility] IN .R.#: [id number] Admission: 06/30/18 Attend Phys: Ino Dinh MD Discharge: Date of : 04/19/30 Report #: [id number] IMPRESSION: 1. Acute exacerbation of congestive heart failure with ejection fraction of 40%. 2. Bilateral lower extremity cellulitis with wounds. 3. Medical complexity with generalized debilitation. 4. Gait instability with recurrent falls. 5. Atrial fibrillation, on chronic anticoagulation. 6. Type 2 diabetes. 7. History of permanent pacemaker placement. 8. Premorbid essential tremor. 9. Premorbid peripheral neuropathy. PLAN: The patient had been admitted to acute inpatient rehabilitation for physical and occupational therapies. I will also ask speech therapy to perform a cognition evaluation as he lives with his independently at home and will help further evaluate for any safety concerns at the home setting. He will be on a 2 g sodium with heart healthy diet. We have dietitian consulted, he has had a very poor appetite. We will continue with Glucerna shakes at all meals. He will be a daily weight. We will repeat lab work in the morning. Monitor his renal function closely. Cardiology will continue to follow along with hospitalist services on rehab unit. He will have neuropsychology testing. He will have continued wound care. He will have twice daily dressing changes as per wound care doctor orders. He will have Pradaxa for DVT prophylaxis as he cannot wear the SCDs due to the wounds. Accu-Cheks a.c. and at bedtime. He will have incentive spirometry 4 times a day for prophylaxis. We will keep him on bed and chair alarms for fall precautions. Social work services to follow for discharge planning needs. Please see orders. <ELECTRONICALLY SIGNED> By: JUANITO Seaman 07/07/18 [id number] JUANITO Seaman /nt
--- NOTE | 2018-07-07 13:54 | NUR ---
ASSUMED CARE AT APPROX 0715. PATIENT A/O X4. ABLE TO VOICE HIS NEEDS. VSS ON RA. MORNING MEDS GIVEN. PAITENT UP X1 ASSIST GB AND WALKER OR WALKING STICK. PARTICIPATING WELL IN THERAPY. UP IN CHAIR BETWEEN SESSIONS PER PATIENT REQUEST. LEGS ELEVATED WHEN AT REST. OT GAVE PT SHOWER THIS AM. DRESSING TO RIGHT LOWER EXTREMITY CHANGED, PICTURES TAKEN. WOUNDS LOOK MUCH BETTER. WBC 5.5. WILL CONTINUE TO BE ON VANCOMYCIN FOR LAST DOSE TO NIGHT. BS HAS BEEN STABLE. NOTIFIED DARLING AND REDUCE TO BS CHECK BID NOW. OFFERED SUPPORTIVE CARE. ENCOURAGED PT TO VOICE HIS NEEDS. ITCHING ON RIGHT THIGHT. TRIAMCINOLONE CREAM APPLIED. PT DENIES PAIN, SOB. REASSESSMENT PER CHART. HAD BM TODAY. RESTING IN RECLINER AT THIS MOMENT. FALL PRECAUTIONS IN PLACE. PT CALLS APPROPRIATELY. CHAIR ALARM IS ON. AT BED SIDE. WILL CONTINUE TO MONITOR.
--- NOTE | 2018-07-07 15:15 | NUR ---
cm visited with wound care nurse rt education on home wound care and hh not being able to visit pt daily for dressing changes, " will see how pt is doing today, possible if dr orders could be changed to m w f at dc home"/wound nurse. cm notified by bedside nurse that dressing change will cont to be same here and will be changed to 3 x week when dc home with hh. cm to send updated clinical to see if [facility] do due 3 x week treatments.
--- NOTE | 2018-07-07 16:43 | NUR ---
WOUND FOLLOW UP: PT. WAS SEEN TODAY BY DR. PAUL AND MYSELF. PT. RIGHT LEG IS GREATLY IMPROVED DURING THIS HOSPITALIZIATION. RECOMMENDATIONS: CONTINUE WITH CURRENT PLAN OF CARE. PT. AND STAFF NURSE WERE INSTRUCTED ON PLAN OF CARE.
[2018-07-07 17:00] VITALS: BP 101/47
[2018-07-07 19:52] VITALS: BP 97/44
--- NOTE | 2018-07-08 02:00 | NUR ---
THERESE DRESSING CHANGE TO FRONT AND BACK OF RLE. UP IN CHAIR FOR MOST OF DAY. WALKS WITH STANDBY ASSIST AND A WALKING STICK FROM HOME. EYEDROPS FROM HOME. KENNY STAYS OVERNIGHT, FAMILY SUPPORT FROM THEIR DAUGHTER AND MILLY
--- NOTE | 2018-07-08 03:41 | NUR ---
UP IN CHAIR UNTIL 2200. UP TO BATHROOM WITH SBA USING HIS WALKING STICK. TOLERATING DRESSING CHANGES TO RIGHT LEG. KENNY STAYS OVERNIGHT. VOIDS WELL SITTING ON TOILET, CALLS STOOL RISER A "CONTRAPTION". ANOTHER DISCUSSION OF THE WAY THINGS WERE DIFFERENT BACK WHEN HE WAS YOUNG WAS FILLED WITH MANY DETAILS ABOUT THE WESTERNS AND VARIETY SHOWS THAT USED TO BE ON TV, AND HOW YOU USED TO NEVER HEAR ANYBODY SWEAR.
[2018-07-08 07:17] VITALS: BP 96/37
--- NOTE | 2018-07-08 11:04 | NUR ---
ASSUMED CARE AT 0700. PATIENT IS ALERT AND ORIENTED X4. PATIENT HAS SOME TREMORS AND A SHUFFLING GAIT WHEN HE IS AMBULATING WITH WITH WALKING STICK AND GAIT BELT. UP IN HIS CHAIR FOR MEALS. FALL AND SAFETY PROTOCOLS IN PLACE. DENIES ANY PAIN. DRESSING CHANGES COMPLETED TO HIS RIGHT LEG. WOUNDS CONTINUE TO IMPROVE. CONTINUES TO PROGESSS SLOWLY TOWARDS D/C GOALS. IN ROOM. WILL CONTINUE TO MONITER
[2018-07-08 15:13] VITALS: BP 100/54
[2018-07-08 19:30] VITALS: BP 93/40
[2018-07-09 07:50] VITALS: BP 93/47
--- NOTE | 2018-07-09 14:52 | NUR ---
ASSUMED CARE AT APPROX 0715. PATIENT A/O X4. C/O PAIN IN RIGHT LOWER EXTREMITY. BILATERAL PEDAL EDEMA +1. MEDS GIVEN PER ORDERS. PATIENT EDUCATED ON INCREASING ORAL FLUID INTAKE UP TO 1500 ML. DRESSINGS CHANGED TO 3 WOUNDS ON RLE, SILVADENE MORPHINE CREAM APPLIED FOR PAIN RELIEF. TRIAMCINOLONE OINTMENT APPLIED. TO BLE. PATIENT UP TO CHAIR DURING DAY. MORE ALERT THIS DATE, VISITING WITH AT BEDSIDE. FALL PRECAUTIONS IN PLACE. WILL CONTINUE TO MONITOR.
[2018-07-09 19:24] VITALS: BP 104/43
--- NOTE | 2018-07-10 00:32 | NUR ---
PT ASSESSMENT COMPLETED AND VSS. MEDS GIVEN ORDERED AND WELL TOLERATED. FALL PRECAUTIONS IN PLACE. DSGS TO R LEG COMPLETED. CREAMS APPLIED ORDERED. SUPPORTIVE AT BEDSIDE. SLEEPING WELL. WILL CONTINUE TO MONITOR FREQUENTLY.
[2018-07-10 08:00] VITALS: BP 115/62
--- NOTE | 2018-07-10 12:00 | NUR ---
cm visited with sera rt home health with [facility] hh will still only be able to come for 1 or so mwf and then will want family to talk over wound care on days that nurse was not there. sera ok with checking with [facility]. cm team to send referral [facility]. spoke with [facility] liaison with [facility] stated " we could possible see pt 3 x weeks and will look at referral and let you know if we can accept pt for hh"/ace. will cont following as needed for dc needs.
--- NOTE | 2018-07-10 13:42 | NUR ---
ASSUMED CARE AT 0700. PATIENT IS ALERT AND ORIENTED X4. REPORTS SLEPT GOOD LAST NIGHT. PATIENT HAS SOME TREMORS AND A SHUFFLING GAIT WHEN HE IS AMBULATING WITH WITH WALKING STICK AND GAIT BELT. UP IN HIS CHAIR FOR MEALS. RECEIVED M.I IN ROOM NOW. ENCOURAGED PT TO CALL FOR HELP.OFFERED SUPPORTIVE CARE. ENCORUAGED PT TO VOICE HIS NEEDS. REASSESSMENT DONE. ENCOURAGED PT TO DRINK MORE FLUID. VSS B/P 115/62. MORNING MEDS GIVEN ORDERED. HELD LISINOPRIL PER B/P PARAMENTER. DENIES ANY PAIN. DRESSING CHANGES COMPLETED TO HIS RIGHT LEG. WOUNDS CONTINUE TO IMPROVE. CONTINUES TO PROGESSS TOWARDS D/C GOALS TOMORROW. IN ROOM. WILL CONTINUE TO MONITER.
--- NOTE | 2018-07-10 16:46 | NUR ---
DCP FAXED REFERRAL TO [facility] SPOKE WITH SARA IN ADM. SHE RECEIVED REFERRAL AND WILL REVIEW. PT. WILL NEED WOUND CARE M-W-Shlomo. PT/OT/RN. ANTICIPATE DC 07/11. SAMANTHAP TO FOLLOW.
[2018-07-10 20:22] VITALS: BP 97/45
--- NOTE | 2018-07-11 00:29 | NUR ---
PT ASSESSMENT COMPLETED AND VSS. MEDS GIVEN ORDERED AND WELL TOLERATED. FALL PRECAUTIONS IN PLACE. DSGS COMPLETED ON R LEG. STEADY AND MOD I IN THE ROOM. SUPPORTIVE AT BEDSIDE. SLEEPING WELL. WILL CONTINUE TO MONITOR FREQUENTLY.
[2018-07-11 05:06] LABS: CALCIUM 9.6 mg/dL (8.5-10.1); CREATININE 1.5 mg/dL (0.7-1.3); POTASSIUM 3.9 mmol/L (3.5-5.1)
[2018-07-11 05:09] LABS: ABSOLUTE NEUTROPHILS 3.7 thou/uL (1.4-8.2); BASOPHILS 0.8 % (0.0-2.0); EOSINOPHILS 4.2 % (0.0-3.0); HEMATOCRIT 28.6 % (42.0-52.0); HEMOGLOBIN 9.8 gm/dL (14.0-18.0); LYMPHOCYTES 21.5 % (24.0-44.0); MCH 33.9 pg (26.0-34.0); MCHC 34.4 g/dL (28.0-37.0); MCV 98.6 fL (80.0-100.0); MONOCYTES 11.6 % (1.0-8.0); PLATELET COUNT 204 thou/uL (150-400); POLYS 61.9 % (36.0-66.0); WBC 5.9 thou/uL (4.0-11.0)
[2018-07-11] MEDS ORDERED: LASIX 40 MG TAB40 M2 PO (09:20)
[2018-07-11 09:44] VITALS: BP 123/45
[2018-07-11 09:57] VITALS: BP 123/45
--- NOTE | 2018-07-11 11:00 | NUR ---
ASSUMED CARE AT 0700. PAITENT IS ALERT AND ORIENTED X4. PATIENT IS MOD/I IN ROOM WITH WALKING STICK. UP IN THE CHAIR FOR MEALS. LUNGS ARE CLEAR. ABD IS SOFT WITH BSX4. PATIENT DRESSING TO RIGHT LEG INTACT. WAITIG FOR WOUND CARE TEAM TO EVAL WOUNDS FOR D/C AND RECCOMMENDATIONS FOR HHN AND CHANGEING THE DRESSINGS. FALL AND SAFETY PROTOCOLS IN PLACE. DENIES ANY PAIN. CONTINUES TO PROGESS TOWARDS D/C GOALS. PLAN D/C LATER TODAY TO HOME WITH DAUGHTER. WILL CONTINUE TO MONITER.
--- NOTE | 2018-07-11 12:44 | NUR ---
WOUND FOLLOW UP: PT. WAS SEEN TODAY BY DR. PAUL AND MYSELF. ALL OF PT. WOUNDS ARE HEALED. PT. HAS NO OPEN ULCERATIONS IN NEED OF ANY MEDICAL TREATMENT AT THIS TIME.
--- NOTE | 2018-07-11 13:10 | NUR ---
team meeting, recommendation : today, hh pt ot [facility] nursing , no driving until cleared by pcp. pt dc home today, going to daughter home till tuesday when daughter take him home.
[2018-07-11 14:52] VITALS: BP 123/45
[2018-07-11 14:56] VITALS: BP 123/45
[2018-07-11 14:59] VITALS: BP 123/45
--- NOTE | 2018-07-11 15:48 | PLAN ---
[facility] [place] [address] REHAB UNIT PLAN OF CARE Name: CHELY SNOW Room #: 514-P ADM IN M.R.#: [id number] Admission: 06/30/18 Attend Phys: Ino Dinh MD Discharge: Date of : [birth year] Report #: [id number] THIS REPORT FOR: //name// CC: Ino Dinh [facility] unknown DATE OF SERVICE: 07/01/2018 The overall plan of care based on the preadmission screen, post-admission physician evaluation and information garnered from therapy assessments. The patient's therapy progress was reviewed. 1. Estimated length of stay is probably 10 days to 2 weeks. 2. Medical prognosis is reasonably good. 3. Anticipated interventions include the interdisciplinary acute inpatient rehabilitation program with PT, OT and speech, rehabilitation nursing to assist regarding medical management with medication, skin care issues bowel, bladder and nursing education. We will have the dynamics ax consultant physicians continue to follow regarding his multiple medical comorbidities. The rest of the interdisciplinary rehab team will be involved as well. 4. Anticipated functional outcomes would be for the patient to hopefully improve as far as his basic mobility and gait, fall prevention, endurance, overall wound as well as improvement in cognition, so he can return back to home setting. 5. Discharge destination would be back home where he lives with his . 6. Expected therapy by discipline includes PT and OT and speech 1 hour per day each five days a week throughout the duration of the acute inpatient rehabilitation. <ELECTRONICALLY SIGNED> By: Ino Dinh MD 07/11/18 [id number] [id number] Ino Dinh MD /[facility]
--- NOTE | 2018-07-11 15:48 | H ---
[facility] [place] [address] HISTORY AND PHYSICAL Name: CHELY SNOW Room #: 514-P ADM IN M.R.#: [id number] Admission: 06/30/18 Attend Phys: Ino Dinh MD Discharge: Date of : 04/19/[birth year] Report #: [id number] THIS REPORT FOR: //name// CC: Ino Dinh [facility] unknown DATE OF SERVICE: 06/30/2018 POSTADMISSION PHYSICIAN EVALUATION HISTORY OF PRESENT ILLNESS: An 88-year-old white male who was having problems with increased shortness of breath, weakness, most of his lower extremities. He was noted to have an acute exacerbation of his congestive heart failure. He was seen by wound care for bilateral lower extremity wounds with cellulitis. He was treated with vancomycin IV. He had a significantly elevated troponin, thought secondary to his congestive heart failure. He was noted to have medical complexity with generalized debilitation and has been admitted for acute in-hospital inpatient rehabilitation. Past medical history, habits, code status, social history, allergies all see the history and physical. MEDICATIONS: Please see the full medication listing, which inclusive of his vitamins, herbals, and supplements as per report. REVIEW OF SYSTEMS: No chest pain, shortness of breath, abdominal discomfort. PHYSICAL EXAMINATION: GENERAL: The patient was seen earlier, was in no distress. VITAL SIGNS: Temperature 98.4, pulse 56, respirations 20, blood pressure 114/48. Sleepy, but easily arouse. HEENT: Facies are symmetric. CHEST: Some decreased breath sounds diffusely. CARDIOVASCULAR: Sounded regular rate and rhythm. ABDOMEN: Bowel sounds positive, nontender. GENITOURINARY AND RECTAL: Deferred. EXTREMITIES: He does have some bilateral essential tremors of his upper extremities. Bilateral lower extremities probably a grade 3+/5. He has decreased distal sensation in his stocking distribution. Functionally, he has been min assist with basic sit to stand transfers. He has ambulated a short distance with some variation in gait speed, some handheld assistance. He does have some decreased balance. He is noted to have significant memory deficits with some suhl-oe-kougrgga cognitive deficits including speech. ASSESSMENT: [address] [address] HISTORY AND PHYSICAL Name: CHELY SNOW Room #: 514-P [facility] IN .R.#: [id number] Admission: 06/30/18 Attend Phys: Ino Dinh MD Discharge: Date of : [birth year]19[birth year] Report #: [id number] 1. Medical complexity with generalized debilitation. 2. Exacerbation of congestive heart failure. 3. Bilateral lower extremity cellulitis with wounds. 4. Gait instability with recurrent falls. 5. Atrial fibrillation, on chronic anticoagulation. 6. Type 2 diabetes mellitus. 7. History of permanent pacemaker placement. 8. Premorbid essential tremor. 9. Premorbid peripheral neuropathy. PLAN: From a postadmission physician evaluation perspective, there are no relevant changes since the preadmission screening. Please see the above review of prior and current medical and functional conditions and comorbidities. Please see the patient's previous and current functional status. As far as risk of complications, the patient has multiple medical comorbidities as noted above. Initial plan of care involves the interdisciplinary acute inpatient rehabilitation program with goal of maximizing his functional independence, so that he can hopefully return back to his prior living situation. Measurable functional goals would be for the patient to become modified independent with transfers, mobility and ADLs that he can hopefully return back to his prior living situation. Prognosis is reasonably good with estimated length of stay probably at least 10-14 days. Potential barriers would include his multiple medical comorbidities and decreased functional status. The patient meets diagnostic criteria for an acute in-hospital inpatient rehabilitation stay. He meets the medical necessity criteria. He does have the tolerance for therapies and has appropriate discharge goals back to the home setting. <ELECTRONICALLY SIGNED> By: Ino Dinh MD 07/11/18 1548 [id number] Ino Dinh MD /nt
--- NOTE | 2018-07-11 16:21 | NUR ---
PT. DISCHARGING TODAY TO HOME WITH [facility]. SPOKE WITH SARA IN ADM. AND SHE DID A BEDSIDE EVAL AND WILL BE ABLE TO ACCEPT PT. AT DISCHARGE. DCP FAXED DC ORDERSS/SUMMARY TO [facility] SPOKE WITH ADM. AND THEY RECEIVED AND WILL START VISITS FRIDAY 07/14 AND WILL NOTIFY PT. OF TIME OF VISITS.
[2018-07-11 17:21] VITALS: BP 107/55
== END 2018-07-11 18:54 | disposition home health service (06) | DRG 292 ==
PROVIDERS: Nurse Practitioner; Nurse Practitioner Family; ADMIT Physical Medicine & Rehabilitation
DX: I13.0 Hypertensive heart and chronic kidney disease with heart failure and stage 1 through stage 4 chronic kidney disease, or unspecified chronic kidney disease (principal); L03.116 Cellulitis of left lower limb; L03.115 Cellulitis of right lower limb; N17.9 Acute kidney failure, unspecified; L97.821 Non-pressure chronic ulcer of other part of left lower leg limited to breakdown of skin; L97.811 Non-pressure chronic ulcer of other part of right lower leg limited to breakdown of skin; N18.4 Chronic kidney disease, stage 4 (severe); I50.9 Heart failure, unspecified; R29.6 Repeated falls; I48.91 Unspecified atrial fibrillation; E11.22 Type 2 diabetes mellitus with diabetic chronic kidney disease; G25.81 Restless legs syndrome; E11.42 Type 2 diabetes mellitus with diabetic polyneuropathy; F01.50 Vascular dementia, unspecified severity, without behavioral disturbance, psychotic disturbance, mood disturbance, and anxiety; F41.9 Anxiety disorder, unspecified; E78.5 Hyperlipidemia, unspecified; H40.9 Unspecified glaucoma; R26.9 Unspecified abnormalities of gait and mobility; G25.0 Essential tremor; R53.81 Other malaise; D69.6 Thrombocytopenia, unspecified; E11.622 Type 2 diabetes mellitus with other skin ulcer; M62.84 Sarcopenia; E53.8 Deficiency of other specified B group vitamins; Z79.01 Long term (current) use of anticoagulants; Z95.0 Presence of cardiac pacemaker; Z90.49 Acquired absence of other specified parts of digestive tract; Z88.2 Allergy status to sulfonamides; Z79.899 Other long term (current) drug therapy
CPT/HCPCS: 10112